=== PATIENT | female | born 2000 | race African-American/Black ===

== ENCOUNTER 2021-03-21 10:58 | Emergency (ER) | payer MEDICAID ==
[~2021-03-21] VITALS: Ht 165.1 cm; Wt 65.0 kg
[2021-03-21] MEDS ORDERED: TRAMADOL 50MG TABLET PO ONE (14:00)
[2021-03-21] MEDS ORDERED: ACETAMINOPHEN 325MG TABLET PO ONE (14:00)
[2021-03-21 14:15] VITALS: BP 119/71
[2021-03-21] MEDS ORDERED: BACITRACIN ZINC OINT UDPKT TOP ONE (14:30)
== END 2021-03-21 15:29 | disposition home or self-care (01) ==
LOC: ER 10:58
DX: S90.811A Abrasion, right foot, initial encounter (principal); X58.XXXA Exposure to other specified factors, initial encounter; Y93.89 Activity, other specified; Y92.89 Other specified places as the place of occurrence of the external cause; Y99.8 Other external cause status
CPT/HCPCS: 73590; 73630; 99284

== ENCOUNTER 2022-11-26 13:00 | Emergency (ER) | payer MEDICAID ==
[~2022-11-26] VITALS: Ht 167.6 cm; Wt 79.3 kg
[2022-11-26 13:06] VITALS: BP 107/70
[2022-11-26] MEDS ORDERED: HYDROCODONE/ACETAMINOPHEN 5/325MG TABLET PO ONE (13:15)
[2022-11-26 14:21] LABS: CLARITY URINE TURBID (CLEAR); COLOR URINE ORANGE (YELLOW); KETONES URINE TRACE (NEGATIVE); LEUKOCYTE ESTERASE URINE TRACE (NEGATIVE); NITRITE URINE NEGATIVE (NEGATIVE); OCCULT BLOOD URINE TRACE (NEGATIVE); PH URINE 5.5 (4.5-8.0); PROTEIN URINE TRACE (NEGATIVE); SPECIFIC GRAVITY URINE 1.025 (1.005-1.030)
[2022-11-26] MEDS ORDERED: HYDR-4001 MT (15:00)
[2022-11-26] MEDS ORDERED: IBUP-2029 MT (15:00)
== END 2022-11-26 15:31 | disposition home or self-care (01) ==
LOC: ER 13:00
DX: S60.211A Contusion of right wrist, initial encounter (principal); S60.221A Contusion of right hand, initial encounter; W19.XXXA Unspecified fall, initial encounter; Y93.02 Activity, running; Y92.89 Other specified places as the place of occurrence of the external cause; Y99.8 Other external cause status
CPT/HCPCS: 29125; 73110; 73130; 81003; 81025; 99284

== ENCOUNTER 2023-01-29 12:45 | Emergency (ER) | payer MEDICAID ==
[~2023-01-29] VITALS: Ht 167.6 cm; Wt 73.0 kg
[~2023-01-29 12:45] MED LIST: HYDR-4001 MT; IBUP-2029 MT
[2023-01-29 13:09] VITALS: BP 96/59; PULSE 62; RESP 18; TEMP 98.5; O2SAT 100
[2023-01-30] MEDS ORDERED: TC1U15 TP (11:56)
[2023-01-30] MEDS ORDERED: B50 MT (11:56)
== END 2023-01-29 16:39 | disposition left against medical advice (07) ==
LOC: ER 12:45
DX: Z53.21 Procedure and treatment not carried out due to patient leaving prior to being seen by health care provider (principal)
CPT/HCPCS: 99281

== ENCOUNTER 2023-01-30 10:23 | Emergency (ER) | payer MEDICAID ==
[~2023-01-30] VITALS: Ht 167.6 cm; Wt 75.0 kg
[2023-01-30 10:47] VITALS: BP 109/68; PULSE 100; RESP 18; TEMP 98.5; O2SAT 100
[2023-01-30] MEDS ORDERED: TC1U15 TP (11:56)
[2023-01-30] MEDS ORDERED: B50 MT (11:56)
== END 2023-01-30 12:38 | disposition home or self-care (01) ==
LOC: ER 12:20
DX: L30.9 Dermatitis, unspecified (principal)
CPT/HCPCS: 99283